=== PATIENT | male | born 1970 | race Two or more races ===

== ENCOUNTER 2020-07-14 07:58 | Outpatient (CLI) | payer OTHER ==
[~2020-07-14 07:58] MED LIST: AMOX1TAB12 PO; FLONASE16 G1 NS; MEDROL4 MG PO; SINGULAIR10 MG PO
== END 2020-07-14 08:15 | disposition home or self-care (01) ==
LOC: TOM 07:58
PROVIDERS: ATTEND Urology
DX: R31.0 Gross hematuria (principal)
CPT/HCPCS: 74178; Q9965

== ENCOUNTER → 2020-08-04 | Outpatient (CLI) | payer OTHER | END | disposition home or self-care (01) | LOC: SONOGRAMA 12:36 | PROVIDERS: ATTEND Internal Medicine Gastroenterology | DX: E04.1 Nontoxic single thyroid nodule (principal); R13.19 Other dysphagia ==

== ENCOUNTER 2020-09-19 09:15 | Outpatient (CLI) | payer OTHER | END 2020-09-19 09:20 | disposition home or self-care (01) | LOC: RX STUDY 09:15 | PROVIDERS: ATTEND Internal Medicine Gastroenterology | DX: R13.19 Other dysphagia (principal) ==